=== PATIENT | female | born 1965 | race Caucasian/White ===

== ENCOUNTER → 2017-02-05 | Outpatient (CLI) | payer OTHER | END | disposition home or self-care (01) | LOC: CDC 12:30 | DX: N64.52 Nipple discharge (principal) | CPT/HCPCS: 93000 ==

== ENCOUNTER 2017-04-19 08:01 | Day surgery (SDC) | payer OTHER ==
[~2017-04-19] VITALS: Ht 160 cm; Wt 74.9 kg
[~2017-04-19 08:01] MED LIST: CALICUM 500+D1 EACH PO; CLARITIN,ALAVAR10 MG PO; NASONEX17 GM BOTH NARES; ONE DAILY1 EAC3 PO; PRILOSEC20 MG PO; ZYRTEC10 M2 PO
[2017-04-19 08:26] VITALS: BP 154/73
[2017-04-19 12:12] LABS: INTERNAL CONTROL VALID? YES
[2017-04-19] MEDS ORDERED: HYDROCODON-ACE1 EAC7 PO (14:03)
[2017-04-19 14:36] VITALS: BP 152/73
[2017-04-19 15:22] VITALS: BP 135/74
== END 2017-04-19 15:30 | disposition home or self-care (01) ==
LOC: SDC 08:01
PROVIDERS: Surgery
DX: D24.1 Benign neoplasm of right breast (principal); N64.52 Nipple discharge; N92.1 Excessive and frequent menstruation with irregular cycle; E11.9 Type 2 diabetes mellitus without complications
CPT/HCPCS: 84703; 88307; 88341 TC; 88342 TC; J1100; J1885; J2250; J2405; J3010; Q0175; S0020

== ENCOUNTER 2017-06-04 07:06 | Day surgery (SDC) | payer OTHER ==
[~2017-06-04] VITALS: Ht 160 cm; Wt 74.8 kg
[~2017-06-04 07:06] MED LIST changes: +FISH OIL-VIT D1 EACH PO; +HYDROCODON-ACE1 EAC7 PO; +MAGNESIUM 300300 MG PO; +TURMERIC500 MG PO; +VITAMIN C1000 MG PO
[2017-06-04 07:28] VITALS: BP 171/52
[2017-06-04] MEDS ORDERED: MOTRIN600 MG PO (09:35)
[2017-06-04] MEDS ORDERED: NORCO 5/3251 TABLET PO (09:35)
[2017-06-04 10:20] VITALS: BP 165/75
[2017-06-04 11:08] VITALS: BP 154/74
== END 2017-06-04 11:18 | disposition home or self-care (01) ==
LOC: SDC 07:06
PROC: 0UDB8ZX Extraction of Endometrium, Via Natural or Artificial Opening Endoscopic, Diagnostic (ICD-10-PCS; principal; 2017-06-04)
PROC: 0UBC8ZX Excision of Cervix, Via Natural or Artificial Opening Endoscopic, Diagnostic (ICD-10-PCS; principal; 2017-06-04)
DX: N88.2 Stricture and stenosis of cervix uteri (principal); N84.1 Polyp of cervix uteri; N92.1 Excessive and frequent menstruation with irregular cycle; E78.5 Hyperlipidemia, unspecified; E11.9 Type 2 diabetes mellitus without complications; K21.9 Gastro-esophageal reflux disease without esophagitis
CPT/HCPCS: 88305; J1100; J2250; J2405; J3010; Q0175